=== PATIENT | male | born 1975 | race Caucasian/White ===

== ENCOUNTER 2018-01-14 12:49 | Emergency (ER) | payer MEDICAID ==
[~2018-01-14] VITALS: Ht 185.4 cm; Wt 76.7 kg
[2018-01-14 13:47] LABS: Basophils # (auto) 0 uL; Basophils % (auto) 0.6 % (0.0-2.0); Eosinophils # (auto) 0.2 uL; Eosinophils % (auto) 4.8 % (0.0-7.0); Hematocrit 44.6 % (41.0-53.0); Hemoglobin 15.3 g/dL (13.5-17.5); Lymphocytes # (auto) 2.2 uL; Lymphocytes % (auto) 43.9 % (10.0-50.0); Mean Corpuscular Hemoglobin 30.9 pg (28.0-32.0); Mean Corpuscular Hgb Conc. 34.4 g/dL (32.0-36.0); Monocytes # (auto) 0.4 uL; Neutrophils # (auto) 2.1 uL; Neutrophils % (auto) 42.7 % (37.0-80.0); Nucleated Red Blood Cells % 0.2 %; Platelet Count (auto) 171 10^3/uL (140-450); Red Blood Cells 4.95 10^6/uL (4.5-5.90); Red Cell Distribution Width 14.5 % (11.8-14.3)
[2018-01-14 13:58] LABS: Urine Bacteria NONE SEEN /hpf (None Seen); Urine Blood Negative /uL (Negative); Urine Specific Gravity 1.017 (1.001-1.035); Urine WBC <1 /hpf (0 - 3)
[2018-01-14 14:07] LABS: Albumin 3.9 g/dL (3.4-5.0); Calcium 8.1 mg/dL (8.5-10.1); Potassium 4.3 mmol/L (3.5-5.1)
[2018-01-14 14:09] LABS: BUN/Creatinine Ratio 10.6
[2018-01-14 14:11] LABS: Bilirubin, Total 0.4 mg/dL (0.2-1.0); Total Protein 7.6 g/dL (6.4-8.2)
[2018-01-14] MEDS ORDERED: DIPHENOXYLATE W/ATROPINE 2.5 MG TAB PO ONE (14:45)
[2018-01-14 14:46] VITALS: BP 124/61
== END 2018-01-14 15:07 | disposition home or self-care (01) ==
LOC: ER 12:49
DX: R19.7 Diarrhea, unspecified (principal)
CPT/HCPCS: 36415; 74176; 80053; 81001; 83690; 85025